=== PATIENT | male | born 1940 | race Caucasian/White ===

== ENCOUNTER 2019-12-10 16:56 | Emergency (ER) | payer OTHER, MEDICARE ==
[~2019-12-10] VITALS: Ht 177.8 cm; Wt 86.0 kg
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
[2019-12-10] MEDS ORDERED: HYDR-3165 PO (18:41)
[2019-12-10] MEDS ORDERED: HYDROcodone/APAP 5/325MG 1 TAB TABLET PO ONE (18:45)
[2019-12-10 18:56] VITALS: BP 142/81
== END 2019-12-10 19:03 | disposition home or self-care (01) ==
LOC: ER 16:56
DX: S42.411A Displaced simple supracondylar fracture without intercondylar fracture of right humerus, initial encounter for closed fracture (principal); J44.9 Chronic obstructive pulmonary disease, unspecified; I10 Essential (primary) hypertension; F17.220 Nicotine dependence, chewing tobacco, uncomplicated; V43.52XA Car driver injured in collision with other type car in traffic accident, initial encounter; Y93.I9 Activity, other involving external motion; Y92.488 Other paved roadways as the place of occurrence of the external cause; Y99.8 Other external cause status
CPT/HCPCS: 29105; 70450; 72125; 73080; 99285-25